=== PATIENT | male | born 1980 ===

== ENCOUNTER 2022-10-18 17:54 | Observation (INO) | payer SELFPAY ==
[~2022-10-18] VITALS: Ht 170.2 cm; Wt 96.1 kg
[2022-10-18] MEDS ORDERED: LORazepam 0.5 MG (ATIVAN) TABLET PO ONE ×2 (18:45→20:30)
[2022-10-18 19:07] LABS: BASOPHILS % (AUTO) 0 % (0-10); EOSINOPHILS # (AUTO) 0.2 10^3/uL (0.0-0.3); EOSINOPHILS % (AUTO) 2 % (0-10); HEMATOCRIT 43 % (40-54); HEMOGLOBIN 14.9 g/dL (13.3-17.7); LYMPHOCYTES # (AUTO) 4.1 10^3/uL (1.0-4.0); LYMPHOCYTES % (AUTO) 45 % (12-44); MEAN CORPUSCULAR HEMOGLOBIN 32 pg (25-34); MEAN CORPUSCULAR HGB CONC 35 g/dL (32-36); MEAN CORPUSCULAR VOLUME 90 fL (80-99); MONOCYTES # (AUTO) 0.5 10^3/uL (0.0-1.0); MONOCYTES % (AUTO) 6 % (0-12); NEUTROPHILS # (AUTO) 4.2 10^3/uL (1.8-7.8); NEUTROPHILS % (AUTO) 46 % (42-75); PLATELET COUNT 299 10^3/uL (130-400); WHITE BLOOD COUNT 8.9 10^3/uL (4.3-11.0)
--- NOTE | 2022-10-18 19:15 | ED Psychosocial ---
General Chief Complaint: Suicidal Ideation Risk Stated Complaint: SUICIDAL OVERDOSE Nursing Triage Note: PT TO ED WITH [facility] CO EMS SI. EMS REPORTS PT HAS BEEN DRINKING WINE TODAY AND TOOK 10 150 MG WELLBUTRIN AND ATTEMPTED TO STRANGLE HIMSELF WHILE IN AMBULANCE. PT CRYING UPON ARRIVAL AND REPORTS HIS FAMILY WAS KILLED IN [place]. PT STATES "I JUST WANT TO TAKE MY LIFE. PLEASE LET ME . PLEASE." PT REPORTS "THEY'RE ([employer]) AFTER ME TOO." PT DRANK CHARCOAL EN ROUTE. Source: patient Exam Limitations: no limitations History of Present Illness Date Seen by Provider: Oct 18, 2022 Time Seen by Provider: 18:02 Initial Comments This 42-year-old man presents to the emergency room via EMS with reported intentional overdose of Wellbutrin XL 150 mg, 20 capsules. Ingestion was shortly before arrival. Patient's fianc, Makenzie Spencer, seems to be a reliable historian and states he took the medication shortly before arrival during an argument. They have been arguing much recently about the patient's substance abuse and relationships with her children. Around the time of ingestion he also drank approximately 1 full bottle of wine. Patient has had intermittent problems with substance abuse. He was recently clean for about 35 days after receiving inpatient treatment at [facility] in [place]. Last week he sta rted using methamphetamine again. Makenzie reports that he usually drinks alcohol weaning he is coming down off of methamphetamine. According to her, he has never attempted or threatened suicide in the past. Today he took these pills stating that he wanted to . He also attempted to strangle himself with his own hands while with EMS. Makenzie reports that he had a good day earlier in the day and went to yazidism without incident. Patient reports that he is depressed and wanted to kill himself because the [place] cartels killed his family in [place] 3 months ago for no reason. He believes if he were , the cartel would not harm anyone else. Makenzie reports this is not true, and patient's family is alive and safe. His father reportedly was killed in [place] when Hugo was 9 years old. There appears to be some delusion involved in his current state of substance abuse. Makenzie reportedly has had very little sleep since resuming methamphetamine use last week. There has been much conflict in the family recently due to problems with fianc's children and substance abuse. Her 17-year-old son is missing and is also involved with methamphetamine use. He called today making a request of a favor from Makenzie, and that triggered the argument. Patient took charcoal with EMS. Vital signs are stable. Poison control was contacted and recommended liberal use of benzodiazepines. They recommended monitoring for seizure activity, ENGINEERING AIDE depression, hyperthermia, and hypotension. They recommended continuous telemetry monitoring and/or every 2 hour EKGs. Allergies and Home Medications Allergies Coded Allergies: No Known Drug Allergies (Unverified , 10/18/22) Patient Home Medication List Home Medication List Reviewed: Yes Review of Systems Constitutional: see HPI EENTM: no symptoms reported Respiratory: no symptoms reported Cardiovascular: no symptoms reported Gastrointestinal: no symptoms reported Genitourinary: no symptoms reported Musculoskeletal: no symptoms reported Skin: no symptoms reported Psychiatric/Neurological: See HPI Past Kqeowqf-Vfbjxf-Vmtcdt Hx Patient Social History Tobacco Use?: No Use of E-Cig and/or Vaping dev: Yes E-Cig or Vaping type used: Nicotine Use of E-Cig and/or Vaping Brandin: Current Everyday User Substance use?: Yes Substance type: Methamphetamine Alcohol Use?: Yes Alcohol type: Hard Liquor Alcohol Frequency: Once in a while Pt feels they are or have been: No Immunizations Up To Date Influenza Vaccine Up-to-Date: No; Not Current First/Initial COVID19 Vaccinat: YES Past Medical History Surgery/Hospitalization HX: DENIES Surgeries: Yes (undescribed head surgery) Respiratory: No Cardiac: No Neurological: No Genitourinary: No Gastrointestinal: No Musculoskeletal: No Endocrine: No HEENT: No Cancer: No Psychosocial: Yes (Polysubstance abuse) Anxiety Physical Exam Vital Signs - First Documented 10/18/22 17:55 Temp 36.7 Pulse 110 Resp 18 B/P (MAP) 146/99 (115) Pulse Ox 97 O2 Delivery Room Air Capillary Refill : Less Than 3 Seconds Height, Weight, BMI Height: '" Weight: lbs. oz. kg; 32.00 BMI Method: General Appearance: WD/WN, other (Intermittently agitated) HEENT: PERRL/EOMI, normal ENT inspection Neck: normal inspection Respiratory: lungs clear, normal breath sounds, no respiratory distress Cardiovascular: regular rate, rhythm, no edema, no murmur Gastrointestinal: non tender, soft; No distended Extremities: normal inspection, no pedal edema Neurologic/Psychiatric: well puller II-XII nml as tested, no motor/sensory deficits, alert, other (Intermittently agitated and verbally aggressive with threatening demeanor. Calming with time and medication. Delusional about history of family being killed in [place] recently.) Appearance/Memory: disheveled, impaired insight Behavior/Eye Contact: good eye contact, threatening eye contact, increased rate of speech, belligerent, compulsive, uncooperative Thoughts/Hallucinations: no apparent hallucination, delusions, paranoid, other (Suicidal ideation with clearly expressed desire to ) Skin: normal color, warm/dry, other (Minor abrasions with localized inflammation on the abdomen and right thigh. Right thigh abrasion is scabbed.) Progress/Results/Core Measures Results/Orders Lab Results Laboratory Tests Test 10/18/22 18:52 10/18/22 19:11 10/18/22 20:08 Range/Units White Blood Count 8.9 4.3-11.0 10^3/uL Red Blood Count 4.73 4.30-5.52 10^6/uL Hemoglobin 14.9 13.3-17.7 g/dL Hematocrit 43 40-54 % Mean Corpuscular Volume 90 80-99 fL Mean Corpuscular Hemoglobin 32 25-34 pg Mean Corpuscular Hemoglobin Concent 35 32-36 g/dL Red Cell Distribution Width 12.2 10.0-14.5 % Platelet Count 299 130-400 10^3/uL Mean Platelet Volume 10.0 9.0-12.2 fL Immature Granulocyte % (Auto) 1 % Neutrophils (%) (Auto) 46 42-75 % Lymphocytes (%) (Auto) 45 H 12-44 % Monocytes (%) (Auto) 6 0-12 % Eosinophils (%) (Auto) 2 0-10 % Basophils (%) (Auto) 0 0-10 % Neutrophils # (Auto) 4.2 1.8-7.8 10^3/uL Lymphocytes # (Auto) 4.1 H 1.0-4.0 10^3/uL Monocytes # (Auto) 0.5 0.0-1.0 10^3/uL Eosinophils # (Auto) 0.2 0.0-0.3 10^3/uL Basophils # (Auto) 0.0 0.0-0.1 10^3/uL Immature Granulocyte # (Auto) 0.1 0.0-0.1 10^3/uL Sodium Level 142 135-145 MMOL/L Potassium Level 3.7 3.6-5.0 MMOL/L Chloride Level 109 H 98-107 MMOL/L Carbon Dioxide Level 18 L 21-32 MMOL/L Anion Gap 15 H 5-14 MMOL/L Blood Urea Nitrogen 10 7-18 MG/DL Creatinine 0.92 0.60-1.30 MG/DL Estimat Glomerular Filtration Rate 107 BUN/Creatinine Ratio 11 Glucose Level 109 H 70-105 MG/DL Calcium Level 9.8 8.5-10.1 MG/DL Corrected Calcium 9.4 8.5-10.1 MG/DL Total Bilirubin 0.5 0.1-1.0 MG/DL Aspartate Amino Transf (AST/SGOT) 36 H 5-34 U/L Alanine Aminotransferase (ALT/SGPT) 39 0-55 U/L Alkaline Phosphatase 63 40-136 U/L Total Protein 7.7 6.4-8.2 GM/DL Albumin 4.5 3.2-4.5 GM/DL Salicylates Level < 5.0 L 5.0-20.0 MG/DL Acetaminophen Level < 10 L 10-30 UG/ML Serum Alcohol 232 H <10 MG/DL TSH Elliott Testing 1.41 0.35-4.94 UIU/ML Urine Color YELLOW Urine Clarity CLEAR Urine pH 5.5 5-9 Urine Specific [place] 1.020 1.016-1.022 Urine Protein NEGATIVE NEGATIVE Urine Glucose (UA) NEGATIVE NEGATIVE Urine Ketones NEGATIVE NEGATIVE Urine Nitrite NEGATIVE NEGATIVE Urine Bilirubin NEGATIVE NEGATIVE Urine Urobilinogen 0.2 < = 1.0 MG/DL Urine Leukocyte Esterase NEGATIVE NEGATIVE Urine RBC (Auto) NEGATIVE NEGATIVE Urine RBC NONE /HPF Urine WBC NONE /HPF Urine Crystals NONE /LPF Urine Bacteria NEGATIVE /HPF Urine Casts NONE /LPF Urine Mucus NEGATIVE /LPF Urine Culture Indicated NO Urine Opiates Screen NEGATIVE NEGATIVE Urine Oxycodone Screen NEGATIVE NEGATIVE Urine Methadone Screen NEGATIVE NEGATIVE Urine Propoxyphene Screen NEGATIVE NEGATIVE Urine Barbiturates Screen NEGATIVE NEGATIVE Ur Tricyclic Antidepressants Screen NEGATIVE NEGATIVE Urine Phencyclidine Screen NEGATIVE NEGATIVE Urine Amphetamines Screen POSITIVE H NEGATIVE Urine Methamphetamines Screen POSITIVE H NEGATIVE Urine Benzodiazepines Screen NEGATIVE NEGATIVE Urine Cocaine Screen NEGATIVE NEGATIVE Urine Cannabinoids Screen NEGATIVE NEGATIVE My Orders Orders - CORA MARIA MD Lorazepam Tablet (Ativan Tablet) (10/18/22 18:45) Thyroid Analyzer (10/18/22 19:09) Lorazepam Tablet (Ativan Tablet) (10/18/22 20:30) Olanzapine Orally Dissolve Tab (Zyprexa (10/18/22 20:45) Ekg Tracing (10/18/22 21:20) Medications Given in ED Current Medications Medications Dose Ordered Sig/Kwaku Route Start Time Stop Time Status Last Admin Dose Admin Lorazepam 0.5 mg ONCE ONCE PO 10/18/22 18:45 10/18/22 18:46 DC 10/18/22 18:45 0.5 MG Lorazepam 0.5 mg ONCE ONCE PO 10/18/22 20:30 10/18/22 20:31 DC 10/18/22 20:58 0.5 MG Olanzapine 5 mg ONCE ONCE SL 10/18/22 20:45 10/18/22 20:46 DC 10/18/22 20:58 5 MG Vital Signs/I&O 10/18/22 10/18/22 17:55 22:09 Temp 36.7 36.2 Pulse 110 97 Resp 18 18 B/P (MAP) 146/99 (115) 106/82 (90) Pulse Ox 97 95 O2 Delivery Room Air Room Air Blood Pressure Mean: 115 Progress Progress Note #1: Time: 21:26 Progress Note Patient has been agitated during much of his ER stay and has required continuous presence of law enforcement until recently. Early in his stay he took Ativan 0.5 mg orally. IV medications were not given as he removed his own IV. He eventually did consent to taking Zyprexa 5 mg and an additional Ativan 0.5 mg orally. He is now calm and cooperative. He will be admitted to the ICU for medical clearance and eventual behavioral health screening. His blood alcohol level was 232, consistent with the bottle of wine he drank prior to arrival. Patient did admit to this provider that he was suicidal. He was also threatening elopement and stated he could fight if necessary. I did complete the involuntary hold paperwork to be used if necessary. Patient never did elope but did walk out into the hallway and threatened to leave. He was very verbally aggressive and threatening which prompted the continuous law enforcement presents. Progress Note #2: Time: 21:35 Progress Note Report was given to eICU. Progress Note #3: Time: 22:09 Progress Note Patient has been sleeping quietly. We were able to easily wake him. He was pleasant and cooperative. Vital signs were obtained and were within normal limits. EKG #1: EKG Time: 18:54 Rate: 102 Rhythm: S.Tach Comment Sinus tachycardia with no ST elevation or depression. No abnormal intervals or axis deviation. EKG #2: EKG Time: 21:13 Rate: 84 Rhythm: Normal Sinus Intervals: Normal ECG Impression: Normal Comment Normal sinus rhythm with no ST elevation or depression. No abnormal intervals or axis deviation. Departure Communication (Admissions) Time/Spoke to Admitting Phy: 21:05 Dr. Shah Impression Primary Impression: Suicide attempt Additional Impressions: Medication overdose Qualified Codes: T50.902A - Poisoning by unspecified drugs, medicaments and biological substances, intentional self-harm, initial encounter Polysubstance abuse Agitation Alcohol intoxication Qualified Codes: F10.929 - Alcohol use, unspecified with intoxication, unspecified Disposition: ADMITTED INPATIENT Condition: Stable Admissions Decision to Admit Reason: Admit from ER (General) Decision to Admit/Date: Oct 18, 2022 Time/Decision to Admit Time: 21:05 Departure-Patient Inst. Referrals: NO,LOCAL PHYSICIAN (PCP/Family) Primary Care Physician Patient Instructions: OUTPT MENTAL HEALTH SERVICES CORA MARIA MD Oct 18, 2022 19:15
[2022-10-18 19:23] LABS: ALBUMIN 4.5 GM/DL (3.2-4.5); CHLORIDE 109 MMOL/L (98-107); POTASSIUM 3.7 MMOL/L (3.6-5.0); SODIUM 142 MMOL/L (135-145)
[2022-10-18 19:24] LABS: CALCIUM 9.8 MG/DL (8.5-10.1)
[2022-10-18 19:25] LABS: GLUCOSE 109 MG/DL (70-105); TOTAL PROTEIN 7.7 GM/DL (6.4-8.2)
[2022-10-18 19:26] LABS: CARBON DIOXIDE 18 MMOL/L (21-32)
[2022-10-18 19:27] LABS: BILIRUBIN,TOTAL 0.5 MG/DL (0.1-1.0)
[2022-10-18 19:29] LABS: ALKALINE PHOSPHATASE 63 U/L (40-136); CREATININE SERUM 0.92 MG/DL (0.60-1.30); GFR ESTIMATED 107
[2022-10-18 19:30] LABS: BUN/CREATININE RATIO 11
[2022-10-18 19:32] LABS: ALANINE AMINOTRANSFERASE 39 U/L (0-55); SALICYLATE < 5.0 MG/DL (5.0-20.0)
[2022-10-18 20:02] LABS: ACETAMINOPHEN < 10 UG/ML (10-30)
[2022-10-18 20:15] LABS: BILIRUBIN,URINE NEGATIVE (NEGATIVE); CLARITY,URINE CLEAR; COLOR,URINE YELLOW; GLUCOSE, URINE (UA) NEGATIVE (NEGATIVE); KETONES,URINE NEGATIVE (NEGATIVE); LEUKOCYTE ESTERASE ,URINE NEGATIVE (NEGATIVE); NITRITE,URINE NEGATIVE (NEGATIVE); PH,URINE 5.5 (5-9); PROTEIN,URINE NEGATIVE (NEGATIVE)
[2022-10-18 20:38] LABS: BACTERIA,URINE NEGATIVE /HPF
[2022-10-18 20:40] LABS: AMPHETAMINE SCREEN, URINE POSITIVE (NEGATIVE); BARBITURATE SCREEN URINE NEGATIVE (NEGATIVE); BENZODIAZEPINES SCREEN URINE NEGATIVE (NEGATIVE); CANNABINOID SCREEN, URINE NEGATIVE (NEGATIVE); COCAINE SCREEN URINE NEGATIVE (NEGATIVE); METHADONE STAT NEGATIVE (NEGATIVE); OPIATE SCREEN URINE NEGATIVE (NEGATIVE); OXYCODONE STAT NEGATIVE (NEGATIVE); PROPOXYPHENE STAT NEGATIVE (NEGATIVE); TRICYCLIC ANTIDEPRESSANTS SCRE NEGATIVE (NEGATIVE)
[2022-10-18] MEDS ORDERED: OLANZapine 5 MG ODT (ZyPREXA ZYDIS) SL ONE (20:45)
[2022-10-18 22:27] VITALS: BP 106/82
--- NOTE | 2022-10-18 23:00 | Tele-ICU Consult ---
Progress Note 42 y/o male with intentional OD with Wellbutrin XL x 20 caps of 150 mg and substance abuse disorder, UDS with Amphetamines. Suicidal attempt. Agitated and required Ativan and Zyprexa x 1 dose. ETOH level at 232. EKG w/o acute changes. BMP with mild metabolic acidosis. Poison control notified. Will watch for Seizures, hypotension , QTc prolongation and ENGINEER PROCESS symptoms. EKG q 2 hrs. Reviewed case with ED MD and ICU nursing staff. Hemodynamically stable. Interventions Minor-Other: Wellbutrin OD Focused Exam Height, Weight, BMI Height: '" Weight: lbs. oz. kg; 32.00 BMI Method: MAGEN GALVEZ MD Oct 18, 2022 23:00
[2022-10-18] MEDS ORDERED: LORazepam INJ 2 MG/ML (ATIVAN) VIAL IV PRN (23:30)
[2022-10-18] MEDS ORDERED: ONDANSETRON 4 MG/2 ML (SDV) Z0FRAN IVP PRN (23:30)
[2022-10-18] MEDS ORDERED: ONDANSETRON 4 MG (ZOFRAN) ORAL DISSOLVE TAB PO PRN (23:30)
[2022-10-18] MEDS ORDERED: LORazepam INJ 2 MG/ML (ATIVAN) VIAL IM PRN (23:30)
[2022-10-18] MEDS ORDERED: OLANZapine 5 MG ODT (ZyPREXA ZYDIS) SL PRN (23:30)
[2022-10-18] MEDS: LORazepam 0.5 MG (ATIVAN) TABLET PO PRN (23:44)
[2022-10-19] MEDS: LACTATED RINGERS 1,000 ML IV SCH ×3 (00:38→16:38)
[2022-10-19] MEDS: LORazepam 0.5 MG (ATIVAN) TABLET PO PRN ×3 (02:51→06:46)
[2022-10-19 04:47] LABS: BASOPHILS % (AUTO) 0 % (0-10); EOSINOPHILS # (AUTO) 0.1 10^3/uL (0.0-0.3); EOSINOPHILS % (AUTO) 2 % (0-10); HEMATOCRIT 38 % (40-54); HEMOGLOBIN 12.9 g/dL (13.3-17.7); LYMPHOCYTES % (AUTO) 64 % (12-44); MEAN CORPUSCULAR HEMOGLOBIN 31 pg (25-34); MEAN CORPUSCULAR HGB CONC 34 g/dL (32-36); MEAN CORPUSCULAR VOLUME 92 fL (80-99); MEAN PLATELET VOLUME 10.3 fL (9.0-12.2); MONOCYTES # (AUTO) 0.3 10^3/uL (0.0-1.0); MONOCYTES % (AUTO) 5 % (0-12); NEUTROPHILS # (AUTO) 1.8 10^3/uL (1.8-7.8); NEUTROPHILS % (AUTO) 28 % (42-75); PLATELET COUNT 253 10^3/uL (130-400); WHITE BLOOD COUNT 6.2 10^3/uL (4.3-11.0)
[2022-10-19 05:09] LABS: ALBUMIN 3.5 GM/DL (3.2-4.5); BILIRUBIN,TOTAL 0.4 MG/DL (0.1-1.0); CALCIUM 8.7 MG/DL (8.5-10.1); CREATININE SERUM 1.1 MG/DL (0.60-1.30); MAGNESIUM 1.7 MG/DL (1.6-2.4); PHOSPHORUS 4.7 MG/DL (2.3-4.7); POTASSIUM 3.4 MMOL/L (3.6-5.0); TOTAL PROTEIN 6.1 GM/DL (6.4-8.2)
[2022-10-19] MEDS: MAGNESIUM 1 GM/100 ML IVPB 100 ML IV SCH ×2 (05:38→06:37)
[2022-10-19] MEDS ORDERED: KCL 20 MEQ TAB (K-DUR) PO SCH (06:00)
[2022-10-19] MEDS ORDERED: MAGNESIUM 1 GM/100 ML IVPB 100 ML IV SCH (06:00)
[2022-10-19] MEDS ORDERED: POTASSIUM CL 10MEQ/50ML IVPB 50 ML IV SCH (06:00)
[2022-10-19] MEDS ORDERED: NS IV 500 ML 500 ML IV PRN (06:00)
[2022-10-19] MEDS ORDERED: KCL 20 MEQ TAB (K-DUR) PO ONE (08:00)
--- NOTE | 2022-10-19 11:21 | Tele-ICU Progress Note ---
Subjective Date Seen by a Provider: Oct 19, 2022 Time Seen by a Provider: 10:25 Subjective/Events-last exam HE IS RESTING COMFORTABLY, NO AGITATION. NO WITHDRAWAL SYMPTOMS. HEMODYNAMICALLY STABLE. Review of Systems ROS PER RN Sepsis Event Evaluation Height, Weight, BMI Height: '" Weight: lbs. oz. kg; 33.17 BMI Method: Exam Exam Patient acknowledged, consented, and participated in this virtual visit which was conducted using real time audio/video Vital Signs Date Time Temp Pulse Resp B/P (MAP) Pulse Ox O2 Delivery O2 Flow Rate FiO2 10/19/22 08:00 36.0 10/19/22 08:00 100 Room Air 10/19/22 07:05 89 10/19/22 06:52 36.7 86 16 108/68 (81) 95 Room Air 10/19/22 06:30 36.8 87 16 95/67 (76) 97 Room Air 10/19/22 05:02 36.5 87 16 101/66 (78) 97 Room Air 10/19/22 04:00 97 Room Air 10/19/22 03:57 36.6 84 16 101/67 (78) 96 Room Air 10/19/22 03:00 36.8 83 16 107/68 (81) 96 Room Air 10/19/22 01:43 36.6 82 16 98/57 (71) 96 Room Air 10/19/22 01:00 88 10/19/22 00:56 36.6 86 16 96/64 (75) 95 Room Air 10/18/22 23:59 96 Room Air 10/18/22 23:54 36.6 96 16 125/56 (79) 96 Room Air 10/18/22 22:40 98 Room Air 10/18/22 22:33 87 10/18/22 22:27 36.2 97 18 106/82 95 Room Air 10/18/22 22:09 36.2 97 18 106/82 (90) 95 Room Air 10/18/22 17:55 36.7 110 18 146/99 (115) 97 Room Air I & O 10/19/22 07:00 Intake Total 700 ml Output Total 0 ml Balance 700 ml Height & Weight Height: '" Weight: lbs. oz. kg; 33.17 BMI Method: General Appearance: Anxious, Obese Capillary Refill: Less Than 3 Seconds Gastrointestinal: non tender, soft; No distended Other comments PE PER RN Results Lab Laboratory Tests 10/18/22 18:52 10/19/22 04:03 Assessment/Plan Assessment/Plan 1. SUICIDAL IDEATION 2. OVERDOSE WITH WELLBUTRY, AND ALCOHOL INTOXICATION 3. SUBSTANCE ABUSE DISORDER.. PLAN. 1. CONTINUE HYDRATION AND MONITOR ELECTROLYTES. 2. SUGGEST PSYCHIATRIC CONSULTATION 3.WATCH FOR ALCOHOL WITHDRAWAL SYMPTOMS. [facility] PROTOCOL REVIEWED WITH rec therapist: Critically Ill Patient Time spent with patient (mins): 15 CHARIS QUIGLEY MD Oct 19, 2022 11:21
--- NOTE | 2022-10-19 11:23 | History & Physical ---
GUYJEFFERY 10/19/22 1123: History of Present Illness History of Present Illness Reason for visit/HPI Patient is a 42-year-old male with a history of polysubstance abuse who presented to the ED on 10/18 following a suicide attempt with medication overdose and strangulation. The patient was released from inpatient psych services at [facility] in [place] approximately 35 days ago. Per the patient's fiancee, he started using meth about a week ago and has also been using alcohol heavily in the past few weeks. Last evening, the two were arguing about substance use and family issues when the fiancee reported that the patient finished a bottle of wine and ingested 20 capsules of 150mg Wellbutrin. The patient was taken to the ED via EMS where he did drink the charcoal solution. He attempted to strangle himself both in transit to the hospital and while in the ED. At the time of admission, the patient stated that he was depressed because his family was killed in [place] by the "[place] [employer]" who were currently after him, and that if he completed suicide they would stop. The patient's fiancee states that his family is alive although his father was killed in [place] when he was 9. Poison control was contacted and advised 2 hour serial EKGs. The patient was agitated on arrival requiring several law enforcement officers in the room with him, but he eventually calmed down. Toxicology from the time of admission showed a blood alcohol level of 232 and was positive for methamphetamine. Today the patient is asleep in his bed after receving 0.5 mg of Ativan. He is somnolent but is able to be aroused. He states that he feels much better today and has no complaints other than some mild dizziness. However, the patient is only able to answer a few questions before falling asleep. Date of Admission Oct 18, 2022 at 21:05 Date Seen by a Provider: Oct 19, 2022 Time Seen by a Provider: 10:15 I consulted on this patient on 10/19/22 11:14 Attending Physician No,Local Physician Admitting Physician Admitting Physician: Krysta Shah MD Attending Physician: Krysta Shah MD Consult Allergies and Home Medications Allergies Coded Allergies: No Known Drug Allergies (Unverified , 10/18/22) Patient Home Medication List Home Medication List Reviewed: Yes No Active Prescriptions or Reported Meds Past Mbthvwz-Aujaar-Kkyjqu Hx Patient Social History Marrital Status: single (engaged) Tobacco Use?: No Use of E-Cig and/or Vaping dev: Yes E-Cig or Vaping type used: Nicotine Use of E-Cig and/or Vaping Brandin: Current Everyday User Substance use?: Yes Substance type: Methamphetamine Alcohol Use?: Yes Alcohol type: Beer Alcohol Frequency: Once in a while Pt feels they are or have been: No Immunizations Up To Date First/Initial COVID19 Vaccinat: YES Current Status Advance Directives: No Communicates: Verbally Primary Language: Wolof Preferred Spoken Language: Wolof Is interpretation needed?: No Past Medical History Anxiety, Suicide Attempts (10/18/22) Review of Systems Constitutional: No chills; dizziness (mild); No fever EENTM: No ear pain, No epistaxis Respiratory: No cough, No short of breath Cardiovascular: No chest pain, No edema Gastrointestinal: No nausea, No vomiting Genitourinary: No dysuria, No hematuria, No incontinence Skin: No change in color, No rash Psychiatric/Neurological: Anxiety; Denies Numbness, Denies Tremors Physical Exam Vital Signs Vital Signs - First Documented 10/18/22 17:55 Temp 36.7 Pulse 110 Resp 18 B/P (MAP) 146/99 (115) Pulse Ox 97 O2 Delivery Room Air Capillary Refill : Less Than 3 Seconds Height, Weight, BMI Height: '" Weight: lbs. oz. kg; 33.17 BMI Method: General Appearance: No Apparent Distress, WD/WN HEENT: Pharynx Normal, Moist Mucous Membranes Neck: Non Tender, Supple Respiratory: Chest Non Tender, Lungs Clear, Normal Breath Sounds, No Accessory Muscle Use Cardiovascular: Regular Rate, Rhythm, No Edema, Normal Peripheral Pulses Gastrointestinal: Non Tender, Soft Rectal: Deferred Back: No Vertebral Tenderness Extremity: Normal Capillary Refill, No Pedal Edema Neurologic/Psychiatric: Alert, Oriented x3 Skin: Normal Color, Warm/Dry Lymphatic: No Adenopathy Assessment/Plan Assessment and Plan Suicide attempt by medication overdose and strangulation Currently on suicide protocol Ativan PRN for agitation (0.5mg PO) Patient started on Zyprexa (5mg sublingual) Will contact poison control for further recommendations Contact [facility] Psychosis in the context of drug abuse Educated on benefits of drug cessation Transaminitis - resolved, will continue to monitor Anemia - mild, asymptomatic Monitor hemoglobin and hematocrit Hypokalemia - started on electrolyte replacement, will monitor Admission Diagnosis Suicide attempt by medication overdose and strangulation Admission Status: Observation KOFFI LUGO MD 10/21/22 1511: Allergies and Home Medications Allergies Coded Allergies: No Known Drug Allergies (Unverified , 10/18/22) Patient Home Medication List No Active Prescriptions or Reported Meds Supervisory-Addendum Brief Verification & Attestation Participated in pt care: history, MDM, physical Personally performed: exam, history, MDM, supervision of care Care discussed with: Medical Student Procedures: n/a Results interpretation: Verified all documentation Verification and Attestation of Medical Student E/M Service A medical student performed and documented this service in my presence. I reviewed and verified all information documented by the medical student and made modifications to such information, when appropriate. I personally performed the physical exam and medical decision making. Koffi Lugo, Oct 21, 2022,15:10 JEFFERY TOVAR Oct 19, 2022 11:23 KOFFI LUGO MD Oct 21, 2022 15:11
--- NOTE | 2022-10-19 18:16 | Discharge Inst-Simple/Standard ---
Discharge Inst-Standard Patient Instructions/Follow Up Plan of Care/Instructions/FU: Please follow up with [facility] as scheduled. Please stay with your family and recommended by the Mental Health Screener. Activity as Tolerated: Yes Discharge Diet: No Restrictions Return to The Hospital For: Thoughts of self harm, paranoia, or thought of hurting someone else. KOFFI LEONARD MD Oct 19, 2022 18:16
== END 2022-10-19 18:45 | disposition home or self-care (01) ==
LOC: EEVIPCON 17:57 → ER 17:57 → ICU 21:05 → EEVIPCON 21:05
PROVIDERS: ADMIT Internal Medicine; ATTEND Internal Medicine
DX: T43.622A Poisoning by amphetamines, intentional self-harm, initial encounter (principal); T51.92XA Toxic effect of unspecified alcohol, intentional self-harm, initial encounter; F28 Other psychotic disorder not due to a substance or known physiological condition; R74.01 Elevation of levels of liver transaminase levels; D64.9 Anemia, unspecified; R45.851 Suicidal ideations; E87.6 Hypokalemia; Y92.89 Other specified places as the place of occurrence of the external cause
CPT/HCPCS: 80053 ×2; 80306; 81000; 83735; 84100; 84443; 85025 ×2; 87081; 93005 ×2; 96366; 96375; 99284; G0378; G0480 ×3; 36415; 80320; 80329

== ENCOUNTER 2022-12-13 12:05 | Emergency (ER) | payer SELFPAY ==
[~2022-12-13] VITALS: Ht 170 cm; Wt 92.9 kg
--- NOTE | 2022-12-13 13:12 | ED Upper Extremity ---
General Chief Complaint: Laceration Stated Complaint: LEFT FINGER LAC Nursing Triage Note: PT CUT TWO FINGERS ON LEFT HAND WITH SAW YESTERDAY AROUND 1530. FINGERS ARE SWOLLEN AND DRIED BLOOD IS PRESENT, BUT NO ACTIVE BLEEDING AT THIS TIME. PT REPORTS PAIN 03/22. PT HAS NEVER HAD A TETANUS SHOT. Source: patient Exam Limitations: no limitations History of Present Illness Date Seen by Provider: Dec 13, 2022 Time Seen by Provider: 12:40 Initial Comments 42-year-old male presents to the ED with lacerations to distal end of third and fourth digits palmar side of left hand. States that he cut them on a saw yesterday around 3:30 in the afternoon. He attempted to cauterize them with a cigarette to stop the bleeding. Denies any past medical history, does not take any medications. Allergies and Home Medications Allergies Coded Allergies: No Known Drug Allergies (Unverified , 10/18/22) Patient Home Medication List Home Medication List Reviewed: Yes Cephalexin (Cephalexin) 500 Mg Tablet, 500 MG PO QID Prescribed by: Bree Escobedo on 12/13/22 1318 Review of Systems Constitutional: see HPI Past Djgzrwj-Aqndro-Rntgfp Hx Patient Social History Tobacco Use?: Yes Tobacco type used: Cigarettes Smoking Status: Current Everyday Smoker Substance use?: No Alcohol Use?: No Pt feels they are or have been: No Immunizations Up To Date Influenza Vaccine Up-to-Date: No; Not Current First/Initial COVID19 Vaccinat: YES Past Medical History Surgery/Hospitalization HX: DENIES Surgeries: Yes (undescribed head surgery) Respiratory: No Cardiac: No Neurological: No Genitourinary: No Gastrointestinal: No Musculoskeletal: No Endocrine: No HEENT: No Cancer: No Psychosocial: Yes (Polysubstance abuse) Anxiety, Suicide Attempts Physical Exam Vital Signs Vital Signs - First Documented 12/13/22 12:11 Temp 36.8 Pulse 88 Resp 20 B/P (MAP) 136/89 (105) Pulse Ox 97 O2 Delivery Room Air Capillary Refill : Less Than 3 Seconds Height, Weight, BMI Height: '" Weight: lbs. oz. kg; 32.00 BMI Method: General Appearance: WD/WN, no apparent distress Neck: supple, normal inspection Cardiovascular: regular rate, rhythm, no edema, no gallop, no JVD, no murmur Respiratory: lungs clear, normal breath sounds, no respiratory distress, no accessory muscle use Hand: Left, laceration (Distal end of third and fourth digit palmar side, jagged edges, swollen) Neurologic/Psychiatric: alert, normal mood/affect Skin: normal color, warm/dry Procedures/Interventions Wound Location: Upper Extremities Other Wound Location Left hand, distal end of palmar side of third and fourth digits Wound Explored: clean Irrigated w/ Saline (ccs): 200 Progress Neosporin applied, Xeroform applied, gauze and tube gauze. Progress/Results/Core Measures Results/Orders My Orders Orders - BREE ESCOBEDO APRN Dipht,Pertuss(Acell),Tet Adult (Boostrix (12/13/22 13:15) Medications Given in ED Current Medications Medications Dose Ordered Sig/Kwaku Route Start Time Stop Time Status Last Admin Dose Admin Diphtheria/ Tetanus/Acell Pertussis 0.5 ml ONCE ONCE IM 12/13/22 13:15 12/13/22 13:16 DC 12/13/22 13:24 0.5 ML Vital Signs/I&O 12/13/22 12/13/22 12:11 13:30 Temp 36.8 Pulse 88 84 Resp 20 18 B/P (MAP) 136/89 (105) 144/97 Pulse Ox 97 98 O2 Delivery Room Air Room Air Blood Pressure Mean: 105 Progress Progress Note : Time: 13:13 Progress Note Patient seen and evaluated, resting comfortably in recliner, no acute distress. Lacerations to distal end, palmar side of third and fourth digit on left hand. Unable to repair lacerations because they occurred yesterday at 3:30 in the afternoon. Wounds dressed with antibiotic ointment, Xeroform, and tube gauze. Patient instructed to return in 2 days for wound evaluation. Patient's took a picture of the wounds for comparison. Will update tetanus at this time. Will discharge with antibiotic. Departure Impression Primary Impression: Laceration Disposition: 01 HOME, SELF-CARE Condition: Stable Departure-Patient Inst. Decision time for Depature: 13:15 Referrals: NO,LOCAL PHYSICIAN (PCP/Family) Primary Care Physician Patient Instructions: Wound Care Add. Discharge Instructions: Keep dressing in place for 2 days. Return here in 2 days for wound evaluation. Take antibiotic as prescribed, complete full course of antibiotic even if you begin to feel better. Monitor for redness or swelling of the hand, streaking into the hand, odorous drainage from wounds, or fever. Return for signs of infections listed above, or any other new, concerning, or worsening symptoms. All discharge instructions reviewed with patient and/or family. Voiced understa nding. Scripts Cephalexin (Cephalexin) 500 Mg Tablet 500 MG PO QID for 7 Days, #28 TAB Prov: BREE ESCOBEDO APRN 12/13/22 Work/School Note: Work Release Form Date Seen in the Emergency Department: Dec 13, 2022 Return to Work: Dec 16, 2022 Restrictions: No Restrictions BREE ESCOBEDO APRN Dec 13, 2022 13:12
[2022-12-13] MEDS ORDERED: TETANUS,DIPTH,PERTUSS P/F (BOOSTRIX) 0.5 ML VIAL IM ONE (13:15)
[2022-12-13] MEDS ORDERED: CEPH500T PO (13:18)
[2022-12-13 13:30] VITALS: BP 144/97
== END 2022-12-13 13:30 | disposition home or self-care (01) ==
LOC: EDUNIT# 12:05 → ER 12:07
DX: S61.213A Laceration without foreign body of left middle finger without damage to nail, initial encounter (principal); S61.215A Laceration without foreign body of left ring finger without damage to nail, initial encounter; F17.210 Nicotine dependence, cigarettes, uncomplicated; Z23 Encounter for immunization; W27.0XXA Contact with workbench tool, initial encounter
CPT/HCPCS: 90715

== ENCOUNTER 2022-12-15 11:37 | Emergency (ER) | payer SELFPAY ==
[~2022-12-15] VITALS: Ht 170 cm; Wt 92.0 kg
[~2022-12-15 11:37] MED LIST: CEPH500T PO
--- NOTE | 2022-12-15 12:02 | ED Integumentary General ---
"General Chief Complaint: Skin/Wound Problems Stated Complaint: RECHECK ON WOUNDS | LT FINGERS INJ Nursing Triage Note: Here for wound check to left 3rd and 4th fingers. Source: patient Exam Limitations: no limitations (DOROTHEA YEAGER) History of Present Illness Date Seen by Provider: Dec 15, 2022 Time Seen by Provider: 11:58 Initial Comments Patient is a 42-year-old male who presents to ED with wounds to his third and f ourth digit. Patient suffered lacerations on Wednesday secondary to cut himself accidentally. Patient did not get seen until Wednesday. Wounds were left open. patient states he was seen here Wednesday discharged with Keflex secondary to two open wounds to the palmar side of his middle and ring finger of his left hand. Patient did not have sutures placed. States he has been keeping the area clean. Denies of any pain, redness or swelling, fever. Patient presents to ED with wound check reevaluation. (DOROTHEA YEAGER) Allergies and Home Medications Allergies Coded Allergies: No Known Drug Allergies (Unverified , 10/18/22) Patient Home Medication List Home Medication List Reviewed: Yes (DOROTHEA YEAGER) Cephalexin (Cephalexin) 500 Mg Tablet, 500 MG PO QID Prescribed by: Bree Escobedo on 12/13/22 1318 Review of Systems Review of Systems Constitutional: No chills, No diaphoresis, No malaise, No weakness Respiratory: No cough, No dyspnea on exertion, No short of breath Cardiovascular: No chest pain, No edema, No other Gastrointestinal: No abdominal pain, No diarrhea, No nausea, No vomiting Genitourinary: No decreased output, No discharge Musculoskeletal: No back pain, No joint pain Skin: change in color (DOROTHEA YEAGER) All Other Systems Reviewed Negative Unless Noted: Yes (DOROTHEA YEAGER) Past Hrwapfu-Iwfach-Gskegu Hx Patient Social History Tobacco Use?: Yes Substance use?: No Alcohol Use?: Yes Alcohol Frequency: Once in a while (DOROTHEA YEAGER) Immunizations Up To Date First/Initial COVID19 Vaccinat: unknown COVID19 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 (DOROTHEA YEAGER) Past Medical History Surgery/Hospitalization HX: DENIES Surgeries: Yes (undescribed head surgery) Respiratory: No Cardiac: No Neurological: No Genitourinary: No Gastrointestinal: No Musculoskeletal: No Endocrine: No HEENT: No Cancer: No Psychosocial: Yes (Polysubstance abuse) Anxiety, Suicide Attempts (DOROTHEA YEAGER) Physical Exam Vital Signs Vital Signs - First Documented 12/15/22 11:45 Temp 36.4 Pulse 86 Resp 16 B/P (MAP) 116/78 Pulse Ox 98 (CORA MARIA MD) Vital Signs Capillary Refill : (DOROTHEA YEAGER) General Appearance: WD/WN, no apparent distress HEENT: PERRL/EOMI, normal ENT inspection, TMs normal, pharynx normal Neck: non-tender, full range of motion, supple, normal inspection Cardiovascular: regular rate, rhythm, no edema, no gallop, no JVD Respiratory: chest non-tender, lungs clear, normal breath sounds, no respir atory distress, no accessory muscle use Gastrointestinal: normal bowel sounds, non tender, soft, no organomegaly Back: normal inspection, no CVA tenderness, no vertebral tenderness Extremities: normal range of motion, non-tender, normal inspection, no pedal edema, other (Two wounds to the left middle and ring finger on the palmar side. 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 No active drainage, abscess. No surrounding redness or swelling. Granulation tissue noted) (DOROTHEA YEAGER) Progress/Results/Core Measures Results/Orders Vital Signs/I&O 12/15/22 12/15/22 11:45 12:08 Temp 36.4 36.4 Pulse 86 86 Resp 16 16 B/P (MAP) 116/78 116/78 Pulse Ox 98 98 (CORA MARIA MD) Departure Communication (PCP) Reviewed previous ER visits, H&P, lab testing. Wound recheck of the left hand on the palmar side. Suffered laceration on Wednesday was seen on Wednesday discharged with Keflex. Delayed wound healing with secondary intention. No evidence of cellulitis. Normal active range of motion. Continue monitoring at home. Discussed Neosporin, soap and water. Keep area covered. Follow-up your PCP in 4 to 5 days for reevaluation. (DOROTHEA YEAGER) Impression Primary Impression: Visit for wound check Disposition: HOME, SELF-CARE Condition: Stable Departure-Patient Inst. Decision time for Depature: 12:01 (DOROTHEA YEAGER) Referrals: CORA MARIA MD NO,LOCAL PHYSICIAN (PCP) Primary Care Physician Patient Instructions: Wound Care (DC) Add. Discharge Instructions: Continue monitoring the wounds. Continue with antibiotics Keflex. Topical Neosporin. If any worsening symptoms such as redness or swelling to return back to ED All discharge instructions reviewed with patient and/or family. Voiced understanding. ATTENDING PHYSICIAN NOTE: I was physically present as attending physician in the emergency department during the care of this patient, but I was not directly involved in the decision making or delivery of care for this patient. (CORA MARIA MD) DOROTHEA YEAGER Dec 15, 2022 12:02 CORA MARIA MD Dec 16, 2022 13:34"
[2022-12-15 12:08] VITALS: BP 116/78
== END 2022-12-15 12:09 | disposition home or self-care (01) ==
LOC: EDUNIT# 11:37 → ER 11:41
DX: Z48.00 Encounter for change or removal of nonsurgical wound dressing (principal); Z28.311 Partially vaccinated for COVID-19
CPT/HCPCS: 99281